=== PATIENT | male | born 1970 | race African-American/Black ===

== ENCOUNTER 2016-10-23 16:33 | Emergency (ER) | payer OTHER ==
[2016-10-23 16:40] VITALS: BMI 34.3
[2016-10-23] MEDS ORDERED: KETOROLAC TROMETHAMINE 60 MG/2 ML VIAL IM ONE (16:50)
[2016-10-23 16:53] VITALS: TEMP 98.7
[2016-10-23] MEDS ORDERED: KETOROLAC TROMETHAMINE 60 MG/2 ML VIAL ONE (16:53)
[2016-10-23] MEDS ORDERED: HYDROCHLOROTHIAZIDE 25 MG TABLET (FP) PO ONE (16:56)
[2016-10-23] MEDS ORDERED: LISINOPRIL 10 MG TABLET (FP) PO ONE (16:56)
--- NOTE | 2016-10-23 16:56 | PDOC ---
History of Present Illness - General History Source: Patient Exam Limitations: No Limitations - History of Present Illness Initial Comments: 10/23/16 17:04 The patient is a 45 year old male with a PMHx of HTN who presents to the ED with pain of his hamstring on his left leg since last night. 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 He believe he pulled his left hamstring in the process. He reports tightness and pain with walking. He also reports left wrist pain, associated with catching the child. He denies any other complaints. <Shannon Bautista - Last Filed: 10/23/16 17:04> - General History Source: Patient Exam Limitations: No Limitations <Mikey Kimble - Last Filed: 10/23/16 18:10> - General Chief Complaint: Injury Stated Complaint: LEFT THIGH/LEFT WRIST PAIN AT WORK Time Seen by Provider: 10/23/16 16:37 Past History <Shannon Bautista - Last Filed: 10/23/16 17:04> - Past Medical History HTN: Yes Hypercholesterolemia: Yes - Surgical History Abdominal Surgery: No Appendectomy: No Cardiac Surgery: No Cholecystectomy: No Gastric Stapling: No GI Surgery: No Lung Surgery: No Neurologic Surgery: No Orthopedic Surgery: No - Psycho/Social/Smoking Cessation Hx Anxiety: No Suicidal Ideation: No Smoking Status: No Smoking History: Never smoked Have you smoked in the past 12 months: No Number of Cigarettes Smoked Daily: 0 Information on smoking cessation initiated: No Hx Alcohol Use: Yes (OCCSASIONAL) Drug/Substance Use Hx: No Substance Use Type: None <Mikey Kimble - Last Filed: 10/23/16 18:10> - Past Medical History Allergies/Adverse Reactions: Allergies Allergy/AdvReac Type Severity Reaction Status Date / Time No Known Allergies Allergy Verified 10/23/16 16:35 Home Medications: Ambulatory Orders Cyclobenzaprine HCl [Flexeril 10 mg] 10 mg PO Q8H PRN #21 tablet 10/23/16 Hydrochlorothiazide [Hctz -] 25 mg PO DAILY #30 tab 10/23/16 Lisinopril [Prinivil] 10 mg PO DAILY #30 tab 10/23/16 Naproxen [Naprosyn -] 500 mg PO BID PRN #20 tablet 10/23/16 Review of Systems - Review of Systems Able to Perform ROS?: Yes Comments:: 10/23/16 17:05 GENERAL/CONSTITUTIONAL: No fever or chills. No weakness. HEAD, EYES, EARS, NOSE AND THROAT: No change in vision. No ear pain or discharge. No sore throat. CARDIOVASCULAR: No chest pain or shortness of breath. RESPIRATORY: No cough, wheezing, or hemoptysis. GASTROINTESTINAL: No nausea, vomiting, diarrhea or constipation. GENITOURINARY: No dysuria, frequency, or change in urination. MUSCULOSKELETAL: + left hamstring pain, left wrist pain. No joint swelling or pain. No neck or back pain. SKIN: No rash NEUROLOGIC: No headache, vertigo, loss of consciousness, or change in strength/ sensation. ENDOCRINE: No increased thirst. No abnormal weight change. HEMATOLOGIC/LYMPHATIC: No anemia, easy bleeding, or history of blood clots. ALLERGIC/IMMUNOLOGIC: No hives or skin allergy. <Shannon Bautista - Last Filed: 10/23/16 17:04> *Physical Exam - Vital Signs Last Vital Signs Temp Pulse Resp BP Pulse Ox 98.7 F 90 18 149/105 97 10/23/16 16:37 10/23/16 16:37 10/23/16 16:37 10/23/16 16:37 10/23/16 16:37 - Physical Exam Comments: 10/23/16 17:05 GENERAL: Awake, alert, and fully oriented, in no acute distress HEAD: No signs of trauma EYES: PERRLA, EOMI, sclera anicteric, conjunctiva clear ENT: Auricles normal inspection, hearing grossly normal, nares patent, oropharynx clear without exudates. Moist mucosa NECK: Normal ROM, supple, no lymphadenopathy, JVD, or masses LUNGS: Breath sounds equal, clear to auscultation bilaterally. No wheezes, and no crackles HEART: Regular rate and rhythm, normal S1 and S2, no murmurs, rubs or gallops ABDOMEN: Soft, nontender, normoactive bowel sounds. No guarding, no rebound. No masses EXTREMITIES: Tenderness to left hamstring. Able to flex and extend knee and foot. Median radial ulnar distribution. Tenderness to palpation of left wrist. Full flexion and extension. 2+ radial pulses. Mild pain elicited on ulnar deviation of the left wrist. NEUROLOGICAL: Cranial nerves II through XII grossly intact. Normal speech, normal gait SKIN: Warm, Dry, normal turgor, no rashes or lesions noted. <Shannon Bautista - Last Filed: 10/23/16 17:04> - Vital Signs Last Vital Signs Temp Pulse Resp BP Pulse Ox 18 0/0 10/23/16 16:37 10/23/16 16:37 <Mikey Kimble - Last Filed: 10/23/16 18:10> ED Treatment Course - Medications Given in the ED: ED Medications Discontinued Medications Generic Name Dose Route Start Last Admin Trade Name Nelia PRN Reason Stop Dose Admin Ketorolac Tromethamine 60 mg 10/23/16 16:50 10/23/16 16:58 Toradol Injection - IM 10/23/16 16:51 60 mg ONCE ONE Administration <Shannon Bautista - Last Filed: 10/23/16 17:04> Medical Decision Making - Medical Decision Making 10/23/16 16:50 A portion of this note was documented by scribe services under my direction. I have reviewed the details of the note, within reason, and agree with the documentation with the following case summary and management plan written by me. Patient treated in the ED. Nursing notes are reviewed and incorporated into the medical decision-making. Vital signs reviewed. Peripheral IV access obtained by the nurse, laboratory studies are drawn and sent, reviewed and interpreted by myself. 45-year-old male with past medical history of hypertension, employee at [employer], presents with pulled left hamstring. The patient was attempting to catch a child when he felt his left hamstring pull. This occurred yesterday. Patient reports that he has taken no medications. Patient denies any numbness or weakness. He is neurovascular intact. Pt also c/o of Left wrist discomfort not on palpation but with certain movements. He has pain with ulnar deviation. Likely sprain, but will obtain a left wrist xray. Patient has a pulled hamstring. We'll give NSAIDs and muscle relaxants and follow-up with orthopedics. Patient's blood pressures noted to be elevated here. Patient reports that he has not taken his blood pressure medications including hydrochlorothiazide and lisinopril for month. We'll start initiating his BP meds. 10/23/16 17:49 Xray reviewed. Negative for fractures. Wrist removal splint applied. I discussed the physical exam findings, ancillary test results and final diagnoses with the patient. I answered all of the patient's questions. The patient was satisfied with the care received and felt comfortable with the discharge plan and treatment plan. The patient will call their primary care physician within 24 hours to arrange follow-up and will return to the Emergency Department with any new, persistant or worsening symptoms. <Mikey Kimble - Last Filed: 10/23/16 18:10> *DC/Admit/Observation/Transfer - Attestations Scribe Attestion: 10/23/16 17:05 Documentation prepared by Shannon Bautista, acting as medical donation professional for Mikey Kimble MD. <Shannon Bautista - Last Filed: 10/23/16 17:04> - Discharge Dispostion Admit: No <Mikey Kimble - Last Filed: 10/23/16 18:10> Diagnosis at time of Disposition: Pulled hamstring Qualifiers: Encounter type: initial encounter Laterality: left Qualified Code(s): S76.312A - Strain of muscle, fascia and tendon of the posterior muscle group at thigh level, left thigh, initial encounter - Discharge Dispostion Disposition: HOME Condition at time of disposition: Stable - Prescriptions Prescriptions: Cyclobenzaprine HCl [Flexeril 10 mg] 10 mg PO Q8H PRN #21 tablet PRN Reason: Muscle Relaxant Hydrochlorothiazide [Hctz -] 25 mg PO DAILY #30 tab Naproxen [Naprosyn -] 500 mg PO BID PRN #20 tablet PRN Reason: Pain Lisinopril [Prinivil] 10 mg PO DAILY #30 tab - Referrals Referrals: Matt Mccullough MD [Staff Physician] - - Patient Instructions Printed Discharge Instructions: DI for Hamstring Strain, DI for Wrist Sprain Additional Instructions: Take 500 mg naproxen every 12 hours as needed for pain. For additional relief, you may take a tablet of flexeril (muscle relaxant) every 8 hours as needed. This medication may make you drowsy so please do not drink or drive while on this medication. Please follow up with orthopedics. It may take days or possibly weeks before your symptoms resolve. Ice and elevate the leg. - Post Discharge Activity Work/School Note: Back to Work
[2016-10-23] MEDS ORDERED: HYDROCHLOROTHIAZIDE 25 MG TABLET (FP) ONE (17:02)
[2016-10-23] MEDS ORDERED: LISINOPRIL 5 MG TABLET (FP) ONE (17:03)
[2016-10-23 18:08] VITALS: BP 150/100; PULSE 87
== END 2016-10-23 18:13 | disposition home or self-care (01) ==
LOC: FER 16:33
PROC: 3E0233Z Introduction of Anti-inflammatory into Muscle, Percutaneous Approach (ICD-10-PCS; principal; 2016-10-23)
DX: S76.312A Strain of muscle, fascia and tendon of the posterior muscle group at thigh level, left thigh, initial encounter (principal); X58.XXXA Exposure to other specified factors, initial encounter; Y93.89 Activity, other specified; Y92.159 Unspecified place in reform school as the place of occurrence of the external cause; Y99.0 Civilian activity done for income or pay
CPT/HCPCS: 73110-TC-LT; 99283-25

== ENCOUNTER 2017-06-26 02:17 | Emergency (ER) | payer OTHER ==
[2017-06-26] MEDS ORDERED: DIPHTH,PERTUSS(ACELL),TET 0.5 ML DISP.SYRIN IM ONE (02:34)
--- NOTE | 2017-06-26 02:34 | PDOC ---
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 Patient was in this facility with an adolescent and she scratched his hand. Patient otherwise denies any injury. Patient tetanus status is unknown. PAST MEDICAL HISTORY: no significant history PAST SURGICAL HISTORY: no significant history FAMILY HISTORY: no pertinant history SOCIAL HISTORY: Pt lives with family and is employed. MEDICATIONS: reviewed ALLERGIES: As per nursing notes Review of Systems General: No fevers or chills, no weakness, no weight loss HEENT: No change in vision. No sore throat,. No ear pain CardioVascular: No chest pain or shortness of breath Respiratory:No cough, or wheezing. Gastrointestinal: no nausea, vomitting, diarrhea or constipation, No rectal bleeding Genitourinary: No dysuria, hematuria, or frequency Musculoskeletal: No joint or muscle pain or swelling, abrasion to right hand Neurologic: No headache, vertigo, dizziness or loss of consciousness Psychiatric: nor depression Skin: No rashes or easy bruising Endocrine: no increased thirst or abnormal weight change Allergic: no skin or latex allergy All other systems reviewed and normal GENERAL: The patient is awake, alert, and fully oriented, in no acute distress. HEAD: Normal with no signs of trauma. EYES: Pupils equal, round and reactive to light, extraocular movements intact, sclera anicteric, conjunctiva clear. EXTREMITIES: Normal range of motion, no edema, there is a small superficial abrasion to the dorsum of the right hand. There is no bony tenderness and there is no active bleeding. NEUROLOGICAL: Normal speech, normal gait. grossly intact PSYCH: Normal mood, normal affect. SKIN: Warm, Dry, normal turgor, no rashes or lesions noted. Assessment and plan: This is a 46-year-old male who sustained a superficial abrasion on the dorsum of his right hand from a resident of a adolescent residential treatment facility in the area. Patient's tetanus is up-to-date there is no bony tenderness. There is full range of motion. Patient was reassured there is nothing more to do as it was cleaned and bacitracin applied. He was discharged Past History - Past Medical History Allergies/Adverse Reactions: Allergies Allergy/AdvReac Type Severity Reaction Status Date / Time No Known Allergies Allergy Verified 10/23/16 16:35 Home Medications: Ambulatory Orders Cyclobenzaprine HCl [Flexeril 10 mg] 10 mg PO Q8H PRN #21 tablet 10/23/16 Hydrochlorothiazide [Hctz -] 25 mg PO DAILY #30 tab 10/23/16 Lisinopril [Prinivil] 10 mg PO DAILY #30 tab 10/23/16 Naproxen [Naprosyn -] 500 mg PO BID PRN #20 tablet 10/23/16 HTN: Yes Hypercholesterolemia: Yes - Surgical History Abdominal Surgery: No Appendectomy: No Cardiac Surgery: No Cholecystectomy: No Gastric Stapling: No GI Surgery: No Lung Surgery: No Neurologic Surgery: No Orthopedic Surgery: No - Suicide/Smoking/Psychosocial Hx Smoking Status: No Smoking History: Never smoked Have you smoked in the past 12 months: No Number of Cigarettes Smoked Daily: 0 Hx Alcohol Use: No Drug/Substance Use Hx: No Substance Use Type: None *DC/Admit/Observation/Transfer Diagnosis at time of Disposition: Abrasion of right hand and fingers - Discharge Dispostion Disposition: HOME Condition at time of disposition: Good Admit: No Decision to Admit order Date/Time: 06/26/17 02:34 Tylenol or Motrin as needed for pain. Return to the emergency department immediately with ANY new, persistent or worsening symptoms. Continue any medications as previously prescribed by your physician. You should follow up with your primary doctor as soon as possible regarding today's emergency department visit. . Please make sure your doctor reviews the results of your emergency evaluation. Thank you for coming to the Emergency Department today for your care. It was a pleasure to see you today. Please note that your evaluation is INCOMPLETE until you follow-up with your doctor. - Referrals - Patient Instructions - Post Discharge Activity
[2017-06-26 02:38] VITALS: BP 100/67; PULSE 98; TEMP 98.3; BMI 38.7
== END 2017-06-26 02:46 | disposition home or self-care (01) ==
LOC: FER 02:17
PROC: 3E0234Z Introduction of Serum, Toxoid and Vaccine into Muscle, Percutaneous Approach (ICD-10-PCS; principal; 2017-06-26)
DX: S60.419A Abrasion of unspecified finger, initial encounter (principal); S60.511A Abrasion of right hand, initial encounter; I10 Essential (primary) hypertension; E78.00 Pure hypercholesterolemia, unspecified; X58.XXXA Exposure to other specified factors, initial encounter; Y93.89 Activity, other specified; Y92.15 Reform school as the place of occurrence of the external cause; Y99.0 Civilian activity done for income or pay
CPT/HCPCS: 90715; 99281-25

== ENCOUNTER 2021-03-05 18:51 | Emergency (ER) | payer OTHER ==
[2021-03-05 18:59] VITALS: BP 173/94; PULSE 102; TEMP 98; BMI 39.4
== END 2021-03-05 21:35 | disposition home or self-care (01) ==
LOC: JER 18:51
DX: U07.1 COVID-19 (principal)
CPT/HCPCS: 99283-25; C9803; U0003; U0005